=== PATIENT | male | born 1985 | race Caucasian/White ===

== ENCOUNTER 2018-10-25 00:06 | Emergency (ER) | payer SELFPAY ==
[~2018-10-25] VITALS: Ht 190.5 cm; Wt 90.0 kg
[2018-10-25 00:08] VITALS: BP 142/95
[2018-10-25] MEDS ORDERED: PROPARACAINE OPHTH 0.5%, 15ML RIGHTEYE ONE (00:30)
[2018-10-25] MEDS ORDERED: FLUORESCEIN OPHTHALMIC 1 MG STRIP RIGHTEYE ONE (00:30)
== END 2018-10-25 01:07 | disposition home or self-care (01) ==
LOC: ED 01:00
DX: S43.422A Sprain of left rotator cuff capsule, initial encounter (principal); X58.XXXA Exposure to other specified factors, initial encounter; Y93.89 Activity, other specified; Y92.89 Other specified places as the place of occurrence of the external cause; Y99.8 Other external cause status
CPT/HCPCS: 99283

== ENCOUNTER 2018-12-31 01:46 | Emergency (ER) | payer SELFPAY ==
[~2018-12-31] VITALS: Ht 190.5 cm; Wt 88.3 kg
--- NOTE | 2018-12-31 02:02 | NUR ---
pt stated i split r knee 7 days ago and "tried to fix it myself." States procedure done at [facility] and john in place. pt also stated "im having a high fever and i just want to make sure this isnt worse. monitors in place, call light within reach
--- NOTE | 2018-12-31 02:26 | NUR ---
iv site started, provided pt with meal, ok per pa
[2018-12-31] MEDS ORDERED: SODIUM CHLORIDE FLUSH 10ML SYR IVF ONE (02:30)
--- NOTE | 2018-12-31 02:32 | NUR ---
pt to xray
[2018-12-31 02:39] LABS: MEAN CORPUSCULAR HEMOGLOBIN 31.1 pg (27.5-34.5); MEAN CORPUSCULAR HGB CONC 33.6 g/dL (33.2-36.2); MEAN CORPUSCULAR VOLUME 92.5 fL (81-97); MEAN PLATELET VOLUME 7.1 fL (7.4-10.4); PLATELET COUNT 285 x10^3/uL (130-400); RED BLOOD COUNT 4.23 x10^6/uL (4.38-5.82); RED CELL DISTRIBUTION WIDTH 14.1 % (9.4-14.8)
[2018-12-31 02:50] LABS: ALANINE AMINOTRANSFERASE 290 U/L (12-78); ANION GAP 8 mmol/L (5-15); CALCIUM 8.5 mg/dL (8.5-10.1); CHLORIDE 104 mmol/L (98-107)
[2018-12-31 02:52] LABS: ALKALINE PHOSPHATASE 249 U/L (45-117); BILIRUBIN,TOTAL 0.8 mg/dL (0.2-1.0); CREATININE 1.13 mg/dL (0.7-1.3); TOTAL PROTEIN 7.4 g/dL (6.4-8.2)
[2018-12-31 02:57] LABS: BASOPHILS # (AUTO) 0.01 x10^3/uL (0-0.1); BASOPHILS % (AUTO) 0 % (0-1); EOSINOPHILS # (AUTO) 0.05 x10^3/uL (0-0.4); EOSINOPHILS % (AUTO) 0 % (1-7); LYMPHOCYTES # (AUTO) 0.56 x10^3/uL (1-3.4); LYMPHOCYTES % (AUTO) 4 % (22-44); MD SCAN; MONOCYTES # (AUTO) 0.23 x10^3/uL (0.2-0.8); MONOCYTES % (AUTO) 2 % (2-9); NEUTROPHILS # (AUTO) 14.66 x10^3/uL (1.8-6.8); NEUTROPHILS % (AUTO) 95 % (42-75)
[2018-12-31 03:01] VITALS: BP 109/65
[2018-12-31] MEDS ORDERED: SULFAMETH./TRIMETHOPRIM DS 800MG/160MG TABLET ONE (03:09)
[2018-12-31] MEDS ORDERED: CEPHALEXIN 500 MG CAPSULE ONE (03:09)
--- NOTE | 2018-12-31 03:15 | NUR ---
pt medicateed per mar
[2018-12-31] MEDS ORDERED: SULFAMETH./TRIMETHOPRIM DS 800MG/160MG TABLET PO ONE (03:30)
[2018-12-31] MEDS ORDERED: CEPHALEXIN 500 MG CAPSULE PO ONE (03:30)
== END 2018-12-31 03:35 | disposition home or self-care (01) ==
LOC: ED 02:39
DX: L03.115 Cellulitis of right lower limb (principal); F15.20 Other stimulant dependence, uncomplicated; F17.220 Nicotine dependence, chewing tobacco, uncomplicated; F11.20 Opioid dependence, uncomplicated
CPT/HCPCS: 36415; 80053; 85025; 87040; 99284

== ENCOUNTER 2019-01-08 11:05 | Emergency (ER) | payer MEDICAID, OTHER ==
[~2019-01-08] VITALS: Ht 190.5 cm; Wt 86.0 kg
--- NOTE | 2019-01-08 11:22 | NUR ---
PT AMBULATORY WITH STEADY GAIT TO ROOM
--- NOTE | 2019-01-08 11:34 | NUR ---
33 Y/O MALE PRESENTS TO ED WITH C/O "I THINK MY TRINI NEED TO BE TAKEN OUT ON MY KNEE. I DON'T KNOW HOW LONG. I'M HIGH ON HEROIN, I HAVE HEP C AND MRSA. SO I DIDN'T GET MY MEDS FILLED. I SPENT THEM ON DRUGS." NO ACUTE DISTRESS NOTED.
[2019-01-08] MEDS ORDERED: VANCOMYCIN PER PHARMACY MC ONE (12:00)
[2019-01-08] MEDS ORDERED: SODIUM CHLORIDE 0.9% 1,000ML IVBOLUS ONE (12:00)
[2019-01-08] MEDS ORDERED: AMPICILLIN/SULBACTAM 3 GM in SODIUM CHLORIDE 0.9% 100 ML IV ONE (12:00)
[2019-01-08] MEDS ORDERED: PHARMACOKINETIC CONSULTATION MC ONE (12:00)
[2019-01-08 12:03] LABS: BASOPHILS # (AUTO) 0.04 x10^3/uL (0-0.1); BASOPHILS % (AUTO) 0 % (0-1); EOSINOPHILS # (AUTO) 0.07 x10^3/uL (0-0.4); EOSINOPHILS % (AUTO) 1 % (1-7); LYMPHOCYTES # (AUTO) 2.24 x10^3/uL (1-3.4); LYMPHOCYTES % (AUTO) 22 % (22-44); MD NO; MEAN CORPUSCULAR HGB CONC 33.9 g/dL (33.2-36.2); MEAN CORPUSCULAR VOLUME 91.6 fL (81-97); MEAN PLATELET VOLUME 6.9 fL (7.4-10.4); MONOCYTES # (AUTO) 0.48 x10^3/uL (0.2-0.8); MONOCYTES % (AUTO) 5 % (2-9); NEUTROPHILS # (AUTO) 7.22 x10^3/uL (1.8-6.8); NEUTROPHILS % (AUTO) 72 % (42-75); PLATELET COUNT 297 x10^3/uL (130-400); RED BLOOD COUNT 4.04 x10^6/uL (4.38-5.82); RED CELL DISTRIBUTION WIDTH 13.9 % (9.4-14.8)
[2019-01-08 12:11] LABS: ALBUMIN 3.4 g/dL (3.4-5.0); ANION GAP 6 mmol/L (5-15); CALCIUM 8.5 mg/dL (8.5-10.1); CHLORIDE 106 mmol/L (98-107); CREATININE 1.04 mg/dL (0.7-1.3)
--- NOTE | 2019-01-08 12:19 | NUR ---
TASK RN: PT STATES THAT ONCE THE TRINI WERE REMOVED, HIS KNEE "FEELS WAY BETTER" BLOOD CULTURES ALREADY DRAWN, PT MEDICATED WITH ABX PER EMAR.
[2019-01-08] MEDS ORDERED: VANCOMYCIN 1,800 MG in SODIUM CHLORIDE 0.9% 250 ML IV SCH (12:30)
--- NOTE | 2019-01-08 13:00 | NUR ---
PT RESTING ON GURNEY. NO ACUTE DISTRESS NOTED. PT COMPLETED DIET TRAY. NO NEEDS REQUESTED AT THIS TIME.
--- NOTE | 2019-01-08 13:25 | NUR ---
PT SLEEPING ON GURNEY. NO ACUTE DISTRESS NOTED. RESPS EQUAL AND UNLABORED. WILL CONTINUE TO MONITOR
--- NOTE | 2019-01-08 14:05 | NUR ---
pt sleeping on gurney. no acute distress noted. resps equal and unlabored. will continue to monitor
[2019-01-08 15:03] VITALS: BP 128/70
[2019-01-08] MEDS ORDERED: NEOSPORIN OINT. PKT 1 PACKET ONE (15:22)
--- NOTE | 2019-01-08 16:03 | NUR ---
late entry for 1500 PT STATES "I DON'T WANT TO BE ADMITTED. I APPRECIATE YOU THOUGH." NO ACUTE DISTRESS NOTED. PT VERBALIZED UNDERSTANDING REGARDING ADMISSION BEING OFFERED. PT REFUSED ADMISSION. NO NEEDS REQUESTED AT THIS TIME.
--- NOTE | 2019-01-08 16:04 | NUR ---
Patient/Caregiver given discharge instructions and they have confirmed that they understand the instructions. Patient ambulatory with steady gait. PT LEFT WITH ALL PERSONAL BELONGINGS.
== END 2019-01-08 16:06 | disposition home or self-care (01) ==
LOC: ED 12:37
DX: L03.115 Cellulitis of right lower limb (principal); F11.20 Opioid dependence, uncomplicated; F15.20 Other stimulant dependence, uncomplicated; Z72.9 Problem related to lifestyle, unspecified; Z86.19 Personal history of other infectious and parasitic diseases
CPT/HCPCS: 36415; 80048; 82040; 83605; 85025; 87040; 96365; 96367; 99283; J0295; J3370; J7030; J7050; 87077; 87147

== ENCOUNTER 2020-12-16 20:40 | Observation (INO) | payer MEDICAID, OTHER ==
[~2020-12-16] VITALS: Ht 190.5 cm; Wt 90.0 kg
[2020-12-16] MEDS ORDERED: MORPHINE SULFATE 4 MG/ML, 1ML IVPush PRN (21:00)
[2020-12-16] MEDS ORDERED: ONDANSETRON 2MG/ML, 2ML IVPush ONE (21:00)
[2020-12-16] MEDS ORDERED: ONDANSETRON 2MG/ML, 2ML ONE (21:11)
[2020-12-16] MEDS ORDERED: MORPHINE SULFATE 4 MG/ML, 1ML ONE (21:11)
--- NOTE | 2020-12-16 21:43 | NUR ---
ALL RESULTS ARE BACK AT THIS TIME. CHART UP FOR RECHECK.
--- NOTE | 2020-12-16 22:27 | NUR ---
KEMAR COLLECTED RAPID COVID SWAB.
[2020-12-16] MEDS ORDERED: SODIUM CHLORIDE FLUSH 10ML SYR IVF PRN (22:30)
[2020-12-16] MEDS ORDERED: SODIUM CHLORIDE 0.9% 1,000 ML IV ONE (22:30)
[2020-12-16] MEDS ORDERED: CEFAZOLIN PMX 1GM/50ML 50 ML IV ONE (22:30)
[2020-12-16] MEDS ORDERED: CEFAZOLIN PMX 1GM/50ML 50 ML ONE (22:30)
--- NOTE | 2020-12-16 22:39 | NUR ---
IV ABX AND IVF STARTED PER SEP. PT STATES PAIN IS BETTER. SNACKS PROVIDED. PT NPO AFTER MIDNIGHT. HOSPITALIST AT BEDSIDE. Addendum: 12/17/20 at 1053 by [email or web address] FACETOR HAS PLACED WET TO DRY DRESSING PER ERPA ORDER.
[2020-12-16 22:45] LABS: BASOPHILS % (AUTO) 1 % (0-1); EOSINOPHILS % (AUTO) 1 % (1-7); LYMPHOCYTES % (AUTO) 26 % (22-44); MEAN CORPUSCULAR HEMOGLOBIN 29.1 pg (27.5-34.5); MEAN CORPUSCULAR HGB CONC 33.9 g/dL (33.2-36.2); MEAN PLATELET VOLUME 7.7 fL (7.4-10.4); MONOCYTES % (AUTO) 7 % (2-9); NEUTROPHILS % (AUTO) 65 % (42-75); PLATELET COUNT 185 x10^3/uL (130-400); RED BLOOD COUNT 4.45 x10^6/uL (4.38-5.82); RED CELL DISTRIBUTION WIDTH 14.6 % (9.4-14.8)
[2020-12-16 22:53] LABS: ALBUMIN 3.1 g/dL (3.4-5.0); ANION GAP 4 mmol/L (5-15); CALCIUM 7.9 mg/dL (8.5-10.1); CHLORIDE 113 mmol/L (98-107); CREATININE 0.99 mg/dL (0.7-1.3)
[2020-12-16] MEDS ORDERED: DIPH,PERTUSS(ACELL),TET VAC/PF 0.5 ML IM-VACC ONE ×2 (22:59→23:00)
[2020-12-16] MEDS ORDERED: LABETALOL 5MG/ML, 20ML IVPush PRN (23:00)
[2020-12-16] MEDS ORDERED: ACETAMINOPHEN 325 MG TABLET PO PRN (23:00)
[2020-12-16] MEDS ORDERED: ONDANSETRON 2MG/ML, 2ML IVPush PRN (23:00)
[2020-12-16] MEDS ORDERED: MELATONIN 5 MG TABLET PO PRN (23:00)
[2020-12-16] MEDS ORDERED: GABAPENTIN 300 MG CAPSULE PO PRN (23:00)
--- NOTE | 2020-12-16 23:01 | NUR ---
REPORT GIVEN TO KODAK FARIAS. PT RTG TO ROOM 370
[2020-12-16] MEDS: morphine SULFATE 10 MG/ML, 1ML IVPush PRN (23:51)
[2020-12-17 01:27] VITALS: BP 118/73
[2020-12-17] MEDS: morphine SULFATE 10 MG/ML, 1ML IVPush PRN ×3 (02:57→07:39)
[2020-12-17] MEDS ORDERED: HYDROmorphone 1 MG/ML, 1ML INJ IV ONE (05:30)
[2020-12-17 07:04] VITALS: BP 120/89
[2020-12-17] MEDS ORDERED: SENNA/DOCUSATE TABLET PO SCH (09:00)
[2020-12-17] MEDS ORDERED: EPINEPHRINE 1 MG/ML, 1ML ONE (10:22)
[2020-12-17] MEDS ORDERED: BUPIVACAINE/PF 0.5% ONE (10:22)
[2020-12-17] MEDS ORDERED: MIDAZOLAM 1 MG/ML, 2ML ONE (10:23)
[2020-12-17] MEDS ORDERED: FENTANYL PF 100 MCG/2ML ONE ×2 (10:23→10:47)
[2020-12-17] MEDS ORDERED: DEXAMETHASONE 4 MG/ML, 1ML ONE (10:36)
[2020-12-17] MEDS ORDERED: CEFAZOLIN 1,000 MG ONE (10:36)
[2020-12-17] MEDS ORDERED: BUPIVACAINE/PF-EPI 0.5% 1:200K IM ONE (10:45)
[2020-12-17] MEDS ORDERED: ONDANSETRON 2MG/ML, 2ML IVPush PRN (11:00)
[2020-12-17] MEDS ORDERED: hydrALAzine 20 MG/ML, 1ML IV PRN (11:00)
[2020-12-17] MEDS ORDERED: LABETALOL 5MG/ML, 20ML IV PRN (11:00)
[2020-12-17] MEDS ORDERED: DIPHENHYDRAMINE 50 MG/ML, 1ML IVPush PRN ×2 (11:00)
[2020-12-17] MEDS ORDERED: HYDROmorphone 1 MG/ML, 1ML INJ IVPush PRN (11:00)
[2020-12-17] MEDS ORDERED: DIAZEPAM 5 MG/ML, 2ML IVPush PRN (11:00)
[2020-12-17] MEDS ORDERED: EPHEDRINE 50 MG/ML, 1ML IVPush PRN (11:00)
[2020-12-17] MEDS ORDERED: FENTANYL PF 100 MCG/2ML IV PRN (11:00)
[2020-12-17] MEDS ORDERED: ALBUTEROL SULFATE 2.5 MG/3 ML NPPB PRN (11:00)
[2020-12-17] MEDS ORDERED: PROMETHAZINE 12.5 MG SUPP PR PRN (11:00)
[2020-12-17] MEDS ORDERED: ACETAMINOPHEN 325 MG TABLET PO PRN (11:00)
[2020-12-17] MEDS ORDERED: MEPERIDINE/PF 25MG/0.5ML IVPush PRN (11:00)
[2020-12-17] MEDS ORDERED: OXYcodone 5 MG/5 ML ORAL.SOL UDC PO PRN (11:00)
[2020-12-17] MEDS ORDERED: PROMETHAZINE 25 MG/ML, 1ML IVPush PRN (11:00)
[2020-12-17] MEDS ORDERED: MIDAZOLAM 1 MG/ML, 2ML IV PRN (11:00)
== END 2020-12-17 14:15 | disposition home or self-care (01) ==
LOC: ED 20:48 → INTOOBSV 22:22 → EDIP 22:22 → 3N 23:17
PROVIDERS: ADMIT Family Medicine; ATTEND Hospitalist
DX: S68.123A Partial traumatic metacarpophalangeal amputation of left middle finger, initial encounter (principal); Z20.822 Contact with and (suspected) exposure to COVID-19; L98.9 Disorder of the skin and subcutaneous tissue, unspecified; M19.90 Unspecified osteoarthritis, unspecified site; F11.10 Opioid abuse, uncomplicated; F15.10 Other stimulant abuse, uncomplicated; Z86.14 Personal history of Methicillin resistant Staphylococcus aureus infection; Z79.899 Other long term (current) drug therapy; Z23 Encounter for immunization
CPT/HCPCS: 11730; 26236; 36415; 73140; 80048; 82040; 85025; 87635; 90471; 90715; 96365; 96375; 96376; 99284; G0378; J0171; J0690; J1100; J1170; J2250; J2270; J2405; J3010; J7030; S0020